=== PATIENT | male | born 1985 | race Caucasian/White ===

== ENCOUNTER 2017-06-08 15:27 | Emergency (ER) | payer OTHER, SELFPAY ==
[2017-06-08 15:33] VITALS: BP 156/84; PULSE 109; RESP 16; TEMP 36.9; O2SAT 98; BMI 38.0
--- NOTE | 2017-06-08 16:09 | [facility].EDGENADL ---
ED Disposition Clinical Impression: Laceration of left upper extremity Qualifiers: Encounter type: initial encounter Qualified Code(s): S41.112A - Laceration without foreign body of left upper arm, initial encounter Disposition: Home, Self-Care Condition on Discharge: Fair Additional Instructions: Keep stitches dry for 2 days and have stitches removed in 9 to 10 days Time of Disposition: 16:42 - Critical Care Critical Care Time: No Attestation: On 06/08/17, the high probability of a clinically significant, sudden or life threatening deterioration of the following system(s) required my full and direct attention, intervention and personal management. The time I documented below is in addition to time spent performing reported procedures but includes the following listed in this critical care notation. Medical Decision Making - Medical Records Medical records reviewed: Yes: I reviewed the patient's medical records. Vital Signs: 06/08/17 15:33 Temperature 98.4 F Temperature Source Oral Pulse Rate [Right] 109 H Respiratory Rate 16 Blood Pressure [Right Arm] 156/84 Blood Pressure Mean [Right Arm] 108 Blood Pressure Position [Right Arm] Sitting 02 Sat by Pulse Oximetry 98 Oxygen Delivery Method Room Air Orders (Tests/Meds): ED MEDICATIONS Discontinued Medications Generic Name Dose Route Start Last Admin Trade Name Freq PRN Reason Stop Dose Admin Tetanus/Reduced Diphtheria/Acell Pertussis 0.5 ml 06/08/17 16:16 06/08/17 16:42 Adacel Tdap 0.5ml Syringe IM 06/08/17 16:17 0.5 ml .ONCE ONE Administration - Roge Inquiry Pt receiving controlled substance: No Roge was queried for this patient: No General Adult HPI - General Chief complaint: Neck Pain/Injury Stated complaint: laceration to left arm Time Seen by Provider: 06/08/17 16:08 Mode of Arrival: Ambulatory Limitations: No Limitations Description of Symptoms (Recalled from ER Triage Doc. by RN): 1cm dermal laceration to the left forearm - History of Present Illness HPI narrative: cut left forearm near elbow on door at Mom's house...the glass pane broke and there is a 1 cm laceration Onset (ago): hour(s) Location: left, upper extremity [facility] History I have reviewed the patient's past medical history: Yes Medical History: Denies:: Cancer, Diabetes Mellitus Type 1, MRSA Amputation: No Fractures: No - Social History Smoking Status: Never smoker Alcohol Intake: never - Psychiatric History Expresses thoughts of harming self/others: None Suicide Plan Description: No Plan ROS Obtained: Yes All systems reviewed & no additional complaints Physical Exam - General General appearance: alert, in no apparent distress - Head Head exam: atraumatic - Respiratory Respiratory exam: Present: normal lung sounds bilaterally - Cardiovascular Cardiovascular exam: Present: regular rate - Neurological Exam Neurological exam: Present: alert, oriented X3 - Psychiatric Psychiatric exam: Present: normal affect - Skin Skin exam: Present: other (laceration left forearm about 1 cm in length) Procedures - Laceration Laceration 1 Site: upper extremity Side (If applicable): left Size (cm): 1 Description: irregular Depth: simple, single layer Local Anesthetic: lidocaine 1% Amount of anesthesia used (mL): 3 Pre-repair: wound explored, irrigated extensively Skin layer closed with: nylon Size (cm): 5-0 Number of sutures: 4 Technique: simple, interrupted
--- NOTE | 2017-06-08 16:16 | ED_ITS ---
ED Disposition Clinical Impression: Laceration of left upper extremity Qualifiers: Encounter type: initial encounter Qualified Code(s): S41.112A - Laceration without foreign body of left upper arm, initial encounter Disposition: Home, Self-Care Condition on Discharge: Fair Additional Instructions: Keep stitches dry for 2 days and have stitches removed in 9 to 10 days Time of Disposition: 16:42 - Critical Care Critical Care Time: No Attestation: On 06/08/17, the high probability of a clinically significant, sudden or life threatening deterioration of the following system(s) required my full and direct attention, intervention and personal management. The time I documented below is in addition to time spent performing reported procedures but includes the following listed in this critical care notation. Medical Decision Making - Medical Records Medical records reviewed: Yes: I reviewed the patient's medical records. Vital Signs: 06/08/17 15:33 Temperature 98.4 F Temperature Source Oral Pulse Rate [Right] 109 H Respiratory Rate 16 Blood Pressure [Right Arm] 156/84 Blood Pressure Mean [Right Arm] 108 Blood Pressure Position [Right Arm] Sitting 02 Sat by Pulse Oximetry 98 Oxygen Delivery Method Room Air Orders (Tests/Meds): ED MEDICATIONS Discontinued Medications Generic Name Dose Route Start Last Admin Trade Name Freq PRN Reason Stop Dose Admin Tetanus/Reduced Diphtheria/Acell Pertussis 0.5 ml 06/08/17 16:16 06/08/17 16: 42 Adacel Tdap 0.5ml Syringe IM 06/08/17 16:17 0.5 ml .ONCE ONE Administration - Roge Inquiry Pt receiving controlled substance: No Roge was queried for this patient: No General Adult HPI - General Chief complaint: Neck Pain/Injury Stated complaint: laceration to left arm Time Seen by Provider: 06/08/17 16:08 Mode of Arrival: Ambulatory Limitations: No Limitations Description of Symptoms (Recalled from ER Triage Doc. by RN): 1cm dermal laceration to the left forearm - History of Present Illness HPI narrative: cut left forearm near elbow on door at Mom's house...the glass pane broke and there is a 1 cm laceration Onset (ago): hour(s) Location: left, upper extremity [facility] History I have reviewed the patient's past medical history: Yes Medical History: Denies:: Cancer, Diabetes Mellitus Type 1, MRSA Amputation: No Fractures: No - Social History Smoking Status: Never smoker Alcohol Intake: never - Psychiatric History Expresses thoughts of harming self/others: None Suicide Plan Description: No Plan ROS Obtained: Yes All systems reviewed & no additional complaints Physical Exam - General General appearance: alert, in no apparent distress - Head Head exam: atraumatic - Respiratory Respiratory exam: Present: normal lung sounds bilaterally - Cardiovascular Cardiovascular exam: Present: regular rate - Neurological Exam Neurological exam: Present: alert, oriented X3 - Psychiatric Psychiatric exam: Present: normal affect - Skin Skin exam: Present: other (laceration left forearm about 1 cm in length) Procedures - Laceration Laceration 1 Site: upper extremity Side (If applicable): left Size (cm): 1 Description: irregular Depth: simple, single layer Local Anesthetic: lidocaine
[2017-06-08 17:00] VITALS: BP 143/79; PULSE 90; RESP 16; TEMP 36.9; O2SAT 98
== END 2017-06-08 17:03 | disposition home or self-care (01) ==
PROVIDERS: Emergency Provider General Practice
DX: S51.812A Laceration without foreign body of left forearm, initial encounter (principal); Z23 Encounter for immunization
CPT/HCPCS: 12001; 90471; 90715; 96374; 99282